=== PATIENT | female | born 2000 | race Caucasian/White ===

== ENCOUNTER 2025-01-26 11:46 | Inpatient (IN) | payer BC ==
[2025-01-26 12:40] LABS: Basophils # (A) 0.03 10*3/uL (0.00-0.10); Basophils % (A) 0.4 %; Eosinophils # (A) 0.01 10*3/uL (0.04-0.35); Eosinophils % (A) 0.1 %; HCT 38.8 % (37.2-46.3); HGB 13.3 g/dL (12.0-15.0); Lymphocytes # (A) 1.57 10*3/uL (0.90-5.00); Lymphocytes % (A) 19.8 %; MCH 28.7 pg (27.0-32.0); MCHC 34.3 g/dL (32.0-37.0); MCV 83.8 fL (80.0-97.0); Monocytes # (A) 0.69 10*3/uL (0.20-1.00); Monocytes % (A) 8.7 %; Neutrophils # (A) 5.58 10*3/uL (1.80-7.70); Neutrophils % (A) 70.5 %; Platelet Count 169 10*3/uL (140-440); RBC 4.63 10*6/uL (4.10-5.20); RDW 12.9 % (11.5-14.5); WBC 7.92 10*3/uL (4.50-10.00)
[2025-01-26 12:44] LABS: Bacteria,Urine Occasional /hpf; Bilirubin,Urine Negative (Negative); Blood,Urine Negative (Negative); Color,Urine Colorless; Glucose,Urine (UA) Negative (Negative); Ketones,Urine Negative (Negative); Leukocyte Esterase,Urine Small (Negative); Nitrite,Urine Negative (Negative); PH, Urine 6.0 (5.0-8.0); Protein,Urine Negative (Negative); Specific Gravity,Urine 1.007 (1.001-1.035); Squamous Epithelial Cell,Urine 2 /hpf (0-4); Urobilinogen,Urine <2.0 mg/dL (<2.0); WBC,Urine <1 /hpf (0-5)
[2025-01-26 12:49] LABS: ALT 16 U/L (4-34); AST 27 U/L (14-36); African American GFR (CKD) >90 (>60 ml/min/1.73 sqM); Non-African American GFR(CKD) >90 (>60 ml/min/1.73 sqM); Uric Acid 8.6 mg/dL (3.7-7.4)
[2025-01-26 12:50] LABS: Protein/Creatinine Ratio,Urine 0.472
[2025-01-26 13:05] LABS: INR 0.8 (<1.2); Partial Thromboplastin Time 22.8 sec (22.0-30.0); Prothrombin Time 9.5 sec (10.0-12.5)
[2025-01-26] MEDS ORDERED: OXYTOCIN 10 UNIT/ML 1 ML VIAL IM PRN (14:15)
[2025-01-26] MEDS ORDERED: METHYLERGONOVINE 0.2 MG/ML 1 ML AMP IM PRN (14:15)
[2025-01-26] MEDS ORDERED: LIDOCAINE 0.5% (PF) 5 MG/ML (50 ML SDV) SQ PRN (14:15)
[2025-01-26] MEDS ORDERED: TRANEXAMIC 1,000 MG/100ML-NACL 1,000 MG in EMPTY BAG 1 BAG IV PRN (14:15)
[2025-01-26] MEDS ORDERED: CARBOPROST TROMETHAMINE 250 MCG/ML 1 ML AMP IM PRN (14:15)
[2025-01-26] MEDS ORDERED: TERBUTALINE 1 MG/ML VIAL SQ PRN (14:15)
[2025-01-27] MEDS: OXYTOCIN 30 UNITS/500 ML NS 30 UNIT in SALINE 1 500ML.BAG IV SCH (06:00)
[2025-01-27] MEDS: LACTATED RINGERS 1,000 ML IV SCH ×2 (06:03→15:20)
--- NOTE | 2025-01-27 09:05 | P.HPOB ---
History of Present Illness H&P Date: 01/27/25 Chief Complaint: medical induction of labor Ms. Ontiveros is a 24 year old at 38 weeks and 6 days gestation with EDC of 02/04/2025 by LMP consistent with 9 week US who presents for medical induction of labor for newly diagnosed pre-eclampsia without severe features. Blood pres sures were elevated yesterday in the office. PIH labs were within normal limits but urine P:C was 0.4. The patient did have a few days of headaches, but denies a headache at this time. She denies visual changes or RUQ pain. She is feeling normal movement and intermittent contractions. has otherwise been uncomplicated. The fetus is estimated to be in the 47%ile for gestational age based on a 32 week and 5 day growth US. labs: blood type O positive, antibody screen negative, rubella immune, VDRL non-reactive, HBsAg negative, HIV negative, HCV non-reactive, gonorrhea neg ative, chlamydia negative, 1 hour GTT wnl, GBS negative Past Medical History Past Medical History: No Reported History History of Any Multi-Drug Resistant Organisms: None Reported Past Surgical History: No Surgical Hx Reported Past Anesthesia/Blood Transfusion Reactions: No Reported Reaction Past Psychological History: No Psychological Hx Reported Smoking Status: Never smoker - Past Family History Mother Additional Family Medical History / Comment(s): thrombocytopenia Medications and Allergies Home Medications Medication Instructions Recorded Confirmed Type Vit No.179/Iron/Folic 1 tab PO DAILY 01/26/25 01/26/25 History [ Tablet] Allergies Allergy/AdvReac Type Severity Reaction Status Date / Time No Known Allergies Allergy Verified 01/26/25 12:06 Exam Vital Signs Temp Pulse Resp BP Pulse Ox 01/26/25 16:38 98.4 F 92 16 134/88 98 Intake and Output 01/26/25 01/27/25 01/27/25 22:59 06:59 14:59 Other: # Voids 1 2 Focused physical exam is performed. This is a healthy-appearing in no apparent distress. Breathing is non-labored. Abdomen is gravid and non-tender. Cervical exam is 2.5/80/-3. AROM is undertaken with clear fluid noted. Extremities non-tender and non-edematous. heart tones are Category I and tocometer is graphing contractions every 2-4 minutes. Results Result Diagrams: 01/26/25 12:25 01/26/25 12:25 Abnormal Lab Results - Last 24 Hours (Table) 01/26/25 01/26/25 01/26/25 Range/Units 12:25 12:25 12:25 MPV 12.7 H (9.5-12.2) fL Eosinophils # 0.01 L (0.04-0.35) 10*3/uL PT (10.0-12.5) sec Uric Acid 8.6 H (3.7-7.4) mg/dL Ur Leukocyte Esterase Small H (Negative) Urine Bacteria Occasional H (None) /hpf 01/26/25 Range/Units 12:25 MPV (9.5-12.2) fL Eosinophils # (0.04-0.35) 10*3/uL PT 9.5 L (10.0-12.5) sec Uric Acid (3.7-7.4) mg/dL Ur Leukocyte Esterase (Negative) Urine Bacteria (None) /hpf Assessment and Plan Assessment: 24 year old at 38 weeks and 6 days presenting for medical induction of labor for pre-eclampsia without severe features Plan: Admit, clear liquid diet, pitocin per protocol, epidural PRN, continuous EFM and tocometer, close monitoring of BPs
[2025-01-27] MEDS ORDERED: SODIUM CHLORIDE 0.9% 250 ML BAG ONE (09:19)
[2025-01-27] MEDS ORDERED: fentaNYL (PF) 50 MCG/ML 5 ML AMP ONE (09:19)
[2025-01-27] MEDS ORDERED: ROPIVACAINE 5 MG/ML 30 ML VIAL ONE (09:19)
[2025-01-27] MEDS ORDERED: MORPHINE SULFATE (PF) 0.3 MG/0.3 ML SYR ONE (12:05)
[2025-01-27] MEDS ORDERED: OXYTOCIN 30 UNITS/500 ML NS BAG IV ONE (12:05)
[2025-01-27] MEDS ORDERED: fentaNYL (PF) 50 MCG/ML 2 ML AMP ONE (12:05)
[2025-01-27] MEDS ORDERED: KETOROLAC 15 MG/ML 1 ML VIAL ONE (12:05)
[2025-01-27] MEDS ORDERED: ONDANSETRON 4 MG/2 ML VIAL ONE (12:05)
[2025-01-27] MEDS ORDERED: ZOLPIDEM 5 MG TAB PO PRN (12:51)
[2025-01-27] MEDS ORDERED: diphenhydrAMINE 25 MG CAP PO PRN (12:51)
[2025-01-27] MEDS ORDERED: NALOXONE 0.4 MG/ML 1 ML VIAL IV PRN ×2 (12:51→13:01)
[2025-01-27] MEDS ORDERED: diphenhydrAMINE 50 MG/ML 1 ML VIAL IVP PRN ×2 (12:51)
[2025-01-27] MEDS ORDERED: METOCLOPRAMIDE 5 MG/ML 2 ML VIAL IVP PRN (12:51)
[2025-01-27] MEDS ORDERED: SIMETHICONE 80 MG CHEWABLE PO PRN (12:51)
--- NOTE | 2025-01-27 12:51 | P.OP ---
Date of Procedure: 01/27/25 Preoperative Diagnosis: 1. Term IUP at 38 weeks and 6 days 2. Breech presentation 3. Active Labor 4. Pre-eclampsia without severe features Postoperative Diagnosis: Same Procedure(s) Performed: Primary Lower Transverse Section Implants: None Anesthesia: epidural Surgeon: Joanna Nogueira Accounting Coordinator #1: Eliot Bhardwaj Estimated Blood Loss (ml): 500 IV fluids (ml): 1,000 Urine output (ml): 1,000 (clear yellow) Pathology: none sent Condition: stable Disposition: floor Indications for Procedure: Ms. Ontiveros is a 24 year old at 38 weeks and 6 days being medically induced for pre-eclampsia without severe features. As dilation quickly progressed, the presentation was felt to be breech. Bedside US confirmed breech presentation. section was recommended for maternal and safety. The risks, benefits, and alternatives to section were discussed with the patient including risk of bleeding, infection, damage to surrounding structures incl uding bladder/bowels/ureters, and post-operative VTE. The patient understands these risks and desires to proceed with section. Operative Findings: Colorless amniotic fluid. Viable male infant in chris breech presentation, Apgars 9/9, weight 7 pounds and 1 ounce (3210 grams), normal uterus, bilateral fallopian tubes, and ovaries. Description of Procedure: The patient was taken back to the operating room where spinal anesthesia was found to be adequate. Two grams of Ancef were given for infection prophylaxis. She was prepared and draped in the dorsal supine position with a leftward tilt. A Pfannenstiel skin incision was made with the scalpel. The incision was carried down to the fascia with a bovie. The fascia was incised and extended laterally with Salomon scissors. The superior aspect of the fascia was grasped with the Ian clamps. The underlying rectus muscle was dissected off sharply with Salomon scissors. In a similar fashion, the inferior aspect of the fascia was elevated with Ian clamps and the rectus muscle and pyramidalis were dissected off. Excellent hemostasis was achieved with the bovie. The rectus muscle was sep arated in the midline down to the level of the pubic symphysis. Pre-peritoneal fatty tissue was bluntly dissected to expose the peritoneum. The peritoneum was found to be free of adherent bowel and entered sharply with Salomon scissors. The peritoneal incision was extended superiorly and inferiorly to the bladder reflection with good visualization of the bladder. The bladder blade was inserted and vesicouterine peritoneum was identified. Intraabdominal survey revealed scant, clear peritoneal fluid and the thinned-out lower uterine segment. The bladder blade was repositioned to keep the bladder out of the operative field. The lower uterine segment was incised with a scalpel. The amniotic sac was ruptured with an Allis clamp and clear fluid was noted. The uterine incision was extended bluntly with lateral and upward traction. The fetus was in chris breech presentation. The buttocks was palpated and delivered gradually through the hysterotomy. Fundal pressure was continued and both legs were extended using the Pinard maneuver. With gentle pressure the legs and body gradually delivered. Once the scapula could be seen the baby was gently rotated and both arms were delivered using the Loveseat maneuver. Maintaining head flexion in a modified Ndlmoefy-mdpuljd-zmas maneuver the head was delivered without difficulty. The was delivered with no difficulty and was noted to be crying spontaneously. The mouth and nose were suctioned with a bulb. The cord was clamped and cut. The infant was handed off to the weapons electrical engineering officer. IV oxytocin was initiated to facilitate uterine contractions. The placenta was delivered intact with manual massage of uterine fundus. The uterus was then exteriorized and the inside of the uterus was gently wiped with a lap sponge to assure complete removal of placental membranes. The uterine incision was closed with 0- Vicryl suture in a running locked fashion. A second imbricating layer was placed with 0-Vicryl. The ovaries and tubes were found to be normal. The uterus, tubes, and ovaries were then gently returned to the abdominal cavity. The abdomen was copiously suction irrigated. The uterine incision was reinspected and excellent hemostasis was noted. The fascial layer was closed with a 0-Vicryl suture. The subcutaneous tissue was reapproximated with 2-0 Plain Gut. The skin was closed with 4-0 Monocryl in a subcuticular fashion.The patient tolerated the procedure well. All the counts were correct times two. The patient was taken to the recovery room in a stable condition. A physician surgical coordinator was utilized for the entire procedure due to the need for tissue retraction, dissection of vital structures, prevention and management of blood loss, and reduction in overall operative and anesthesia time as is the standard of care.
[2025-01-27] MEDS ORDERED: HYDROmorphone 0.5 MG/0.5 ML SYRINGE IVP PRN (13:01)
[2025-01-27 15:25] VITALS: RESP 16
[2025-01-27] MEDS: KETOROLAC 15 MG/ML 1 ML VIAL IVP SCH (15:59)
[2025-01-27] MEDS: ACETAMINOPHEN TAB 500 MG TAB PO SCH (20:34)
[2025-01-27] MEDS: NIFEdipine XL 30 MG TAB.ER.24 PO SCH (20:35)
[2025-01-27] MEDS: ONDANSETRON 4 MG/2 ML VIAL IVP PRN (20:35)
[2025-01-27] MEDS: SENNOSIDES-DOCUSATE SODIUM 1 EACH TAB PO SCH (20:36)
[2025-01-28 05:52] LABS: Basophils # (A) 0.04 10*3/uL (0.00-0.10); Basophils % (A) 0.3 %; Eosinophils # (A) 0.01 10*3/uL (0.04-0.35); Eosinophils % (A) 0.1 %; HCT 33.9 % (37.2-46.3); HGB 11.4 g/dL (12.0-15.0); Lymphocytes # (A) 1.59 10*3/uL (0.90-5.00); Lymphocytes % (A) 13.4 %; MCH 28.7 pg (27.0-32.0); MCHC 33.6 g/dL (32.0-37.0); MCV 85.4 fL (80.0-97.0); Monocytes # (A) 0.90 10*3/uL (0.20-1.00); Monocytes % (A) 7.6 %; Neutrophils # (A) 9.28 10*3/uL (1.80-7.70); Neutrophils % (A) 78.1 %; Platelet Count 134 10*3/uL (140-440); RBC 3.97 10*6/uL (4.10-5.20); RDW 13.0 % (11.5-14.5); WBC 11.88 10*3/uL (4.50-10.00)
--- NOTE | 2025-01-28 09:25 | P.PNOBGPC ---
Subjective - Subjective Principal diagnosis: s/p primary section Interval history: The patient is doing well this morning and had no acute events overnight. She has no complaints this morning. She reports minimal lochia, passing flatus, voiding without difficulty, ambulating, and eating/drinking without nausea or vomiting. She is breast feeding her without difficulty. She denies chest pain, shortness of breathing, fevers, or chills overnight. She denies pain or swelling in the legs. The patient denies headache, visual changes, and RUQ pain. Patient reports: Reports appetite normal, Reports voiding normally, Reports pain well controlled, Reports ambulating normally Occidental: doing well, nursing well Objective - Vital Signs Latest vital signs: Vital Signs Temp Pulse Resp BP Pulse Ox 01/28/25 08:00 97.9 F 80 16 132/86 98 01/28/25 04:00 97.8 F 64 16 138/85 01/28/25 00:00 98.1 F 66 16 136/88 01/27/25 22:13 98.2 F 76 16 143/85 100 01/27/25 20:00 159/103 01/27/25 19:55 98.2 F 75 16 170/102 01/27/25 16:00 98.0 F 82 16 142/84 98 01/27/25 14:52 81 16 147/89 01/27/25 14:37 78 18 152/87 01/27/25 14:22 96 16 131/85 98 01/27/25 14:07 95 16 135/76 98 01/27/25 13:52 89 16 135/86 98 01/27/25 13:37 96 16 145/81 98 01/27/25 13:22 95 16 145/74 98 01/27/25 13:07 95 16 146/86 98 01/27/25 12:52 86 16 137/78 98 Intake and Output 01/27/25 01/28/25 01/28/25 22:59 06:59 14:59 Output Total 300 300 Balance -300 -300 Output: Urine 300 300 Uretheral (Bennett) 300 Other: Voiding Method Indwelling Catheter Toilet - Exam Extremities: Present: normal Abdomen: Present: normal appearance, soft Incision: Present: normal, dressed Uterus: Present: normal, firm - Labs Labs: Abnormal Lab Results - Last 24 Hours (Table) 01/28/25 Range/Units 05:36 WBC 11.88 H (4.50-10.00) 10*3/uL RBC 3.97 L (4.10-5.20) 10*6/uL Hgb 11.4 L (12.0-15.0) g/dL Hct 33.9 L (37.2-46.3) % Plt Count 134 L (140-440) 10*3/uL Immature Gran # 0.06 H (0.00-0.04) 10*3/uL Neutrophils # 9.28 H (1.80-7.70) 10*3/uL Eosinophils # 0.01 L (0.04-0.35) 10*3/uL Assessment and Plan Assessment: 24 year old now POD#1 s/p primary for malpresentation in active labor Plan: 1. Post-op. Patient meeting all post-operative milestones appropriately. 2. Pre-eclampsia without severe features. Some mild range BPs and one severe range BP . Procardia XL 30mg daily started yesterday. Continue to monitor. 3. Viable male at bedside. Nursing well. Circumcision tomorrow. Dispo: Continue inpatient management. Anticipate discharge home tomorrow on POD#2 if BPs stable.
--- NOTE | 2025-01-28 10:48 | P.PN ---
Progress Note - Text Progress Note Date: 01/28/25 S/P CS. POD #1. Pain control is adequate. -08/24. No anesthesia related complications.
[2025-01-28] MEDS: IBUPROFEN 800 MG TAB PO SCH (17:48)
--- NOTE | 2025-01-29 08:38 | P.DS ---
Providers Date of admission: 01/27/25 06:37 Expected date of discharge: 01/29/25 Attending physician: Joanna Nogueira MD Primary care physician: Stated None Hospital Course: Ms. Ontiveros is a 24 year old now POD#2 s/p primary section for malpresentation in active labor. She was being induced for pre-eclampsia without severe features. The section was uncomplicated, please reference the operative note. , the patient did have mild-range pressures and one severe-range pressure for which she was started on Procardia XL 30 mg daily. She has been normotensive since initiation of this medication. The patient is doing well this morning and had no acute events overnight. She has no complaints this morning. She reports minimal lochia, passing flatus, voiding without difficulty, ambulating, and eating/drinking without nausea or vomiting. doing well at bedside, s/p circumcision. She denies chest pain, shortness of breathing, fevers, or chills overnight. She denies pain or swelling in the legs. P ostoperative restrictions are reviewed with the patient including pelvic rest for 6 weeks, no lifting heavier than 15 pounds for 6 weeks. The patient is encouraged to call the office if she experiences any heavy bleeding, foul- smelling discharge, breast complaints, or any if she has any other concerns. She will follow up in the office in 2 weeks for post-op exam. She will check home BPs and call office for any elevated readings. All questions are answered. Patient Condition at Discharge: Good Plan - Discharge Summary Discharge Rx Participant: Yes New Discharge Prescriptions: New Ibuprofen [Motrin] 600 mg PO Q6HR PRN #30 tab PRN Reason: Mild Pain (Scale 1 To 3) Acetaminophen Tab [Tylenol] 650 mg PO Q6H PRN #30 tab PRN Reason: Mild Pain (Scale 1 To 3) NIFEdipine XL [Procardia Xl] 30 mg PO DAILY #30 tab No Action Vit No.179/Iron/Folic [ Tablet] 1 tab PO DAILY Discharge Medication List Vit No.179/Iron/Folic [ Tablet] 1 tab PO DAILY 01/26/25 [History] Acetaminophen Tab [Tylenol] 650 mg PO Q6H PRN #30 tab 01/29/25 [Rx] Ibuprofen [Motrin] 600 mg PO Q6HR PRN #30 tab 01/29/25 [Rx] NIFEdipine XL [Procardia Xl] 30 mg PO DAILY #30 tab 01/29/25 [Rx] Follow up Appointment(s)/Referral(s): Joanna Nogueira MD [STAFF PHYSICIAN] - 03/10/25 11:30 am (Need to schedule 2 week post-op visit) Activity/Diet/Wound Care/Special Instructions: Instructions 1. Do not begin any exercise program for 3 weeks. 2. Do not resume sexual relations for 6 weeks or longer if uncomfortable. 3. You may take tub baths or showers at any time. 4. You may use tampons if desired after 6 weeks. 5. Keep any areas repaired with stitches clean and dry. 6. If you are not nursing, wear a good fitting, supportive bra during the day and limit fluid intake for at least 1 week to prevent breast engorgement. 7. Call the office, , within the next week to make appointment for your 6 week checkup if it has not already been made. 8. Report any of the following occurrences to the doctor promptly: a. Heavy, excessive bleeding b. Chills, fever c. Burning or frequency of urination d. Pain or redness and breasts if nursing e. Increasing pain or swelling of vulva (stitches). In addition to the above instructions, the following additional should be followed: 1. No heavy lifting or straining (exercising) until after 6 week checkup. 2. Keep abdominal incision clean and dry: You may wear a dressing if more comfortable. 3. Make office appointment for 2 weeks after delivery date. Pre-eclampsia - Check BPs daily in the afternoon after taking morning Procardia XL 30mg daily in the AM - Call the office for BPs higher than 140/90 or lower than 110/70. - Call the office for intractable headache that does not improve with medication, visual changes, or right upper quadrant abdominal pain Discharge Disposition: HOME SELF-CARE
[2025-01-29] MEDS: NIFEdipine XL 30 MG TAB.ER.24 PO STA (12:44)
[2025-01-30 08:20] VITALS: BP 145/83; PULSE 82; TEMP 98.5
== END 2025-01-30 12:55 | disposition home or self-care (01) | DRG 788 ==
LOC: FBPOP 11:46 → 4FBP 13:19 → OBSVTOIN 01-27 06:37
PROVIDERS: ADMIT Obstetrics & Gynecology; ATTEND Obstetrics & Gynecology
PROC: 10D00Z1 Extraction of Products of Conception, Low, Open Approach (ICD-10-PCS; principal; 2025-01-27 12:59)
DX: O14.04 Mild to moderate pre-eclampsia, complicating childbirth (principal); O32.1XX0 Maternal care for breech presentation, not applicable or unspecified; Z37.0 Single live birth; Z3A.38 38 weeks gestation of pregnancy; Z28.21 Immunization not carried out because of patient refusal
CPT/HCPCS: 36415; 59025; 81001; 82565; 82570; 84156; 84450; 84460; 84550; 85025; 85610; 85730; 86850; 86900; 86901